=== PATIENT | female | born 1975 | race Caucasian/White ===

== ENCOUNTER → 2016-12-12 | Outpatient (CLI) | payer OTHER ==
[~2016-12-12] MED LIST: DOCU-168 PO; FURO-154 PO; HYDR-4072 PO; HYDR1TAB73 PO; HYDR25SU38 RECTALLY; LORA0.5T86 PO; NORG1TAB12; NORG1TAB16 PO; PANT40TA27 PO; PROP80CA2 PO; ZOLP10TA2 PO
--- NOTE | 2016-12-13 14:02 | DI ---
Indication: ITS.REASON: FALL, LEFT SHOULDER PAIN PROCEDURE: SHOULDER LEFT 2-3 VIEWS: Encounter: Initial Comparison: None Findings: There is no acute fracture, dislocation or malalignment identified. Impression: No acute osseous abnormality. .
--- NOTE | 2016-12-13 14:03 | DI ---
Indication: ITS.REASON: LT WRIST PAIN/SWELLING PROCEDURE: WRIST LEFT 3-4 VIEWS: Encounter: Initial Comparison: None Findings: There is no acute fracture, dislocation or malalignment identified. Impression: No acute osseous abnormality. .
== END ==
LOC: IMA 13:25
PROVIDERS: ATTEND Nurse Practitioner Family
DX: M25.512 Pain in left shoulder (principal); M25.532 Pain in left wrist; Z91.81 History of falling; M25.432 Effusion, left wrist